=== PATIENT | female | born 1995 | race African-American/Black ===

== ENCOUNTER 2017-11-23 17:27 | Emergency (ER) | payer SELFPAY ==
[~2017-11-23] VITALS: Ht 152.4 cm; Wt 65.0 kg
[~2017-11-23 17:27] MED LIST: CLARITIN 1010 MG/TAB PO; COMPAZINE 5MG TA5 MG PO; IMITREX50 MG; ZANAFLEX2 MG PO; ZANTAC 150MG T150 MG
[2017-11-23 17:29] VITALS: BP 118/67; TEMP 98
[2017-11-23] MEDS ORDERED: AKTOB 5 ML5 ML OD (17:52)
[2017-11-23 18:20] VITALS: PULSE 75
== END 2017-11-23 18:20 | disposition home or self-care (01) ==
LOC: COL.ER 17:27
DX: H16.001 Unspecified corneal ulcer, right eye (principal)